=== PATIENT | male | born 1960 | race Caucasian/White ===

== ENCOUNTER 2019-10-19 10:32 | Day surgery (SDC) | payer OTHER ==
[~2019-10-19] VITALS: Ht 185.4 cm; Wt 84.7 kg
[2019-10-19] MEDS ORDERED: AMLO5 (12:24)
--- NOTE | 2019-10-19 13:28 | NUR ---
10/19/19 1328 Anna Valdez 1316 PT. STARTED MOVING HIS MOUTH, MOVING, PT. SUCTIONED FOR SCANT CLEAR SECRETIONS. PT. MADE A STRIDOR SOUND, JAW THRUST PERFORMED.
== END 2019-10-19 14:03 | disposition home or self-care (01) ==
LOC: ORSCSDS 10:32
PROVIDERS: Internal Medicine Gastroenterology
PROC: 0DBH8ZX Excision of Cecum, Via Natural or Artificial Opening Endoscopic, Diagnostic (ICD-10-PCS; principal; 2019-10-19 12:00)
PROC: 0DBK8ZX Excision of Ascending Colon, Via Natural or Artificial Opening Endoscopic, Diagnostic (ICD-10-PCS; principal; 2019-10-19 12:00)
PROC: 0DBM8ZX Excision of Descending Colon, Via Natural or Artificial Opening Endoscopic, Diagnostic (ICD-10-PCS; principal; 2019-10-19 12:00)
PROC: 0DBP8ZX Excision of Rectum, Via Natural or Artificial Opening Endoscopic, Diagnostic (ICD-10-PCS; principal; 2019-10-19 12:00)
DX: Z12.11 Encounter for screening for malignant neoplasm of colon (principal); Z80.0 Family history of malignant neoplasm of digestive organs; D12.0 Benign neoplasm of cecum; D12.2 Benign neoplasm of ascending colon; D12.4 Benign neoplasm of descending colon; K62.1 Rectal polyp; K57.30 Diverticulosis of large intestine without perforation or abscess without bleeding; K64.8 Other hemorrhoids; I10 Essential (primary) hypertension; F17.210 Nicotine dependence, cigarettes, uncomplicated; Z87.891 Personal history of nicotine dependence; Z79.899 Other long term (current) drug therapy
CPT/HCPCS: 88305; J2704; J7120

== ENCOUNTER → 2021-07-04 | Outpatient (CLI) | payer OTHER ==
[~2021-07-04] MED LIST: AMLO5
[2021-07-04 16:57] LABS: C DIFFICILE DNA POSITIVE (Negative)
== END | disposition home or self-care (01) ==
LOC: LAB SHORT 07:30
PROVIDERS: Physician Assistant
DX: R19.7 Diarrhea, unspecified (principal)
CPT/HCPCS: 87015; 87045; 87046; 87205; 87324; 87329; 87493; 87899

== ENCOUNTER 2024-04-23 07:22 | Day surgery (SDC) | payer OTHER ==
[~2024-04-23] VITALS: Ht 182.9 cm; Wt 78.8 kg
[2024-04-23] VITALS (8 sets, daily range): BP systolic 109–145; BP diastolic 68–84
[~2024-04-23 07:22] MED LIST changes: +ANDRODERM1 EAC3 TD; +Cyclobenzaprine5 MG PO; +LISI20 PO; +MELO7.5 PO; +TADA10TA; +TAMS.4ER PO
[2024-04-23] MEDS ORDERED: CeFAZolin Sodium 2,000 MG in NS 100 ML IV SCH (07:30)
[2024-04-23] MEDS ORDERED: Lactated Ringer's 1,000 ML IV SCH (07:30)
[2024-04-23] MEDS ORDERED: Midazolam HCl 1MG / ML 2ML Vial IV ONE (08:25)
[2024-04-23] MEDS ORDERED: Bupivacaine 0.5% Inj 10 ML Vial ONE ×2 (08:43→08:44)
[2024-04-23] MEDS ORDERED: FentaNYL Citrate 50 MCG/ML 2 ML Injection ONE (08:51)
[2024-04-23] MEDS ORDERED: propofoL 20 ML IV ONE (08:51)
--- NOTE | 2024-04-23 08:54 | NUR ---
History, Chart, Medications and Allergies reviewed before start of procedure. Patient up to Ambulate independently. Gait steady. Pre-Op teaching done. Pt verbalizes understanding. Patient States Post-Procedure ride home has been arranged.
[2024-04-23] MEDS ORDERED: SuccINYLCHOLINE Chloride 100 MG/5 ML 5MLSYR ONE (08:56)
[2024-04-23] MEDS ORDERED: Rocuronium Bromide 10 MG/ML 5ML Injection IV ONE (08:56)
[2024-04-23] MEDS ORDERED: Phenylephrine HCl 100 MCG/ML-NS 10MLSYR (1MG/10ML) ONE (08:58)
[2024-04-23] MEDS ORDERED: Phenylephrine HCl 10mg/ml 1 ml Vial ONE (09:01)
[2024-04-23] MEDS ORDERED: Dexamethasone Sod Phos 10 MG/ML 1ML VIAL ONE (09:09)
[2024-04-23] MEDS ORDERED: Ondansetron HCl 2 MG / ML 2ML Vial ONE (09:09)
[2024-04-23] MEDS ORDERED: Sugammadex Sodium 200 MG/2ML SDV (100 MG/ML) ONE (09:10)
[2024-04-23] MEDS ORDERED: HYDROcodone 5-APAP 325 TAB PO PRN (09:55)
--- NOTE | 2024-04-23 10:46 | NUR ---
Patient up to Ambulate independently. Gait steady. Discharge instructions reviewed with patient. Patient verbalizes understanding. Copy given to patient to take home, WELL . Discharged via wheelchair to private car for ride home. Patient States Post-Procedure ride home has been arranged. PT REPORTS PAIN TOLERABLE. DENIES N/V. PT REPORTS READY TO GO HOME. GIVEN ICE PACK. DRESSING C/D/I.
== END 2024-04-23 10:47 | disposition home or self-care (01) ==
LOC: ORSCMMR 07:22 → ORD 09:00 → ORSCMMR 09:00
PROVIDERS: Surgery
PROC: 0WQF0ZZ Repair Abdominal Wall, Open Approach (ICD-10-PCS; principal; 2024-04-23 09:00)
DX: K42.9 Umbilical hernia without obstruction or gangrene (principal); I10 Essential (primary) hypertension; K21.9 Gastro-esophageal reflux disease without esophagitis; G47.33 Obstructive sleep apnea (adult) (pediatric); Z79.899 Other long term (current) drug therapy
CPT/HCPCS: J0330; J0690; J1100; J2250; J2371; J2405; J2704; J3010; J7120